=== PATIENT | female | born 1985 | race African-American/Black ===

== ENCOUNTER 2021-01-06 15:17 | Observation (INO) | payer SELFPAY ==
[~2021-01-06] VITALS: Ht 170.2 cm; Wt 105.7 kg
[2021-01-06] MEDS ORDERED: PREN-55 MT (15:38)
== END 2021-01-06 18:55 | disposition home or self-care (01) ==
LOC: 8 EST LDRP 15:17
PROVIDERS: ADMIT Obstetrics & Gynecology; ATTEND Obstetrics & Gynecology
DX: O26.893 Other specified pregnancy related conditions, third trimester (principal); R03.0 Elevated blood-pressure reading, without diagnosis of hypertension; O09.523 Supervision of elderly multigravida, third trimester; Z3A.38 38 weeks gestation of pregnancy
CPT/HCPCS: G0378 ×2; 59025; 99281; G0379

== ENCOUNTER 2021-01-20 12:40 | Inpatient (IN) | payer SELFPAY ==
[~2021-01-20] VITALS: Ht 170.2 cm; Wt 108.9 kg
[~2021-01-20 12:40] MED LIST: PREN-55 MT
[2021-01-20] MEDS ORDERED: DEXT 5%/LR + PITOCIN 20UNITS/L 1,000 ML IV SCH ×2 (13:45→23:15)
[2021-01-20] MEDS ORDERED: LACTATED RINGERS 1,000 ML IV SCH (13:45)
[2021-01-20] MEDS ORDERED: LIDOCAINE HCL 1% 20ML VIAL (Pyxis) INJ INFIL SCH (13:45)
[2021-01-20] MEDS ORDERED: NALOXONE HCL 0.4 MG/ML 1ML VIAL IM PRN (13:45)
[2021-01-20] MEDS ORDERED: BUTORPHANOL TARTRATE 2 MG/ML VIAL IV PRN (13:45)
[2021-01-20] MEDS ORDERED: METHYLERGONOVINE MALEATE 0.2 MG/ML IM PRN (13:45)
[2021-01-20] MEDS ORDERED: CARBOPROST TROMETHAMINE 250 MCG/ML AMPUL IM PRN (13:45)
[2021-01-20] MEDS ORDERED: LABETALOL HCL 5MG/ML VIAL 20ML IV PRN ×3 (14:00)
[2021-01-20 14:35] LABS: BASOPHILS % 0.9 % (0.0-2.0); EOSINOPHILS % 1.2 % (0.0-5.0); HEMATOCRIT. 37.4 % (36.0-48.0); HEMOGLOBIN. 12.5 g/dL (12.0-16.0); LYMPHOCYTES % 25.7 % (20.0-50.0); MEAN CORPUSCULAR HEMOGLOBIN 27.2 pg (28.0-32.0); MEAN CORPUSCULAR VOLUME 81.5 fL (81.0-99.0); MEAN PLATELET VOLUME 8.5 fl (7.4-10.4); MONOCYTES % 8.3 % (2.0-8.0); NEUTROPHILS % 63.9 % (40.0-76.0); PLATELET 254 x1000/uL (130-400); RED BLOOD CELL COUNT 4.59 mill/uL (4.2-5.4); RED CELL DISTRIBUTION WIDTH 15.2 % (11.6-14.6)
[2021-01-20 14:43] LABS: CHLORIDE 107 mEq/L (98-107)
[2021-01-20] MEDS: MAGNESIUM 20 G PREMIX (L & D) 500 ML IV SCH (14:45)
[2021-01-20 14:46] LABS: CLARITY URINE CLEAR (CLEAR); COLOR URINE YELLOW (YELLOW); KETONES URINE NEGATIVE (NEGATIVE); LEUKOCYTE ESTERASE URINE NEGATIVE (NEGATIVE); NITRITE URINE NEGATIVE (NEGATIVE); OCCULT BLOOD URINE NEGATIVE (NEGATIVE); PROTEIN URINE TRACE (NEGATIVE); SPECIFIC GRAVITY URINE 1.016 (1.005-1.030); UROBILINOGEN URINE 0.2 E.U./dL (0.2-1.0)
[2021-01-20 14:51] LABS: INR 0.9; PARTIAL THROMBOPLASTIN TIME 24.9 sec (23.4-31.0); PROTHROMBIN TIME 9.6 sec (9.6-11.0)
[2021-01-20 15:18] LABS: *COCAINE SCREEN URINE NEGATIVE (NEGATIVE)
[2021-01-20 15:19] LABS: *BARBITURATES SCREEN URINE NEGATIVE (NEGATIVE); *BENZODIAZEPINES SCREEN URINE NEGATIVE (NEGATIVE); CANNABINOID URINE SCREEN NEGATIVE (NEGATIVE); METHADONE URINE SCREEN NEGATIVE (NEGATIVE); OPIATES URINE SCREEN NEGATIVE (NEGATIVE); PHENCYCLIDINE URINE SCREEN NEGATIVE (NEGATIVE)
[2021-01-20 15:20] LABS: *AMPHETAMINES SCREEN URINE NEGATIVE (NEGATIVE)
[2021-01-20 15:30] LABS: HEPATITIS B SURFACE ANTIGEN NEGATIVE
[2021-01-20] MEDS ORDERED: OXYTOCIN 10 UNITS/ML 1ML ONE ×2 (18:24→23:49)
[2021-01-20] MEDS ORDERED: CEFAZOLIN SODIUM 1000MG/VIAL ONE (18:24)
[2021-01-20] MEDS ORDERED: MORPHINE SULFATE/PF 1MG/ML 10ML AMP ONE (18:24)
[2021-01-20] MEDS ORDERED: FENTANYL CITRATE/PF 50MCG/ML 2ML VIAL ONE (18:24)
[2021-01-20] MEDS ORDERED: EPHEDRINE SULFATE 50MG/ML VIAL ONE (18:24)
[2021-01-20] MEDS ORDERED: ONDANSETRON HCL 4MG/2ML INJ ONE (18:24)
[2021-01-20] MEDS ORDERED: ONDANSETRON HCL 4MG/2ML INJ IV PRN (23:15)
[2021-01-20] MEDS ORDERED: LANOLIN OINT 7GM TUBE TOP PRN (23:15)
[2021-01-20] MEDS ORDERED: MAGNESIUM 20 G PREMIX (L & D) 500 ML IV SCH (23:15)
[2021-01-20] MEDS ORDERED: HEMORRHOIDAL SUPP PR PRN (23:15)
[2021-01-20] MEDS ORDERED: BISACODYL 10MG SUPP PR PRN (23:15)
[2021-01-20] MEDS ORDERED: DIPHENHYDRAMINE 25MG CAPSULE PO PRN (23:15)
[2021-01-20] MEDS ORDERED: ACETAMINOPHEN WITH CODEINE 300/30MG TABLET PO PRN (23:15)
[2021-01-20] MEDS ORDERED: IBUPROFEN 400MG TABLET PO PRN (23:15)
[2021-01-20] MEDS ORDERED: DIPHENHYDRAMINE 50MG/ML VIAL ONE (23:41)
[2021-01-20] MEDS ORDERED: KETOROLAC 60MG/2ML VIAL IM ONE (23:41)
[2021-01-21] MEDS ORDERED: DIPHENHYDRAMINE 50MG/ML VIAL IV PRN
[2021-01-21] MEDS ORDERED: NALOXONE HCL 0.4 MG/ML 1ML VIAL IV PRN
[2021-01-21 07:09] LABS: BASOPHILS % 0.2 % (0.0-2.0); EOSINOPHILS % 0.7 % (0.0-5.0); HEMATOCRIT. 32.3 % (36.0-48.0); HEMOGLOBIN. 10.5 g/dL (12.0-16.0); LYMPHOCYTES % 19.4 % (20.0-50.0); MEAN CORPUSCULAR HEMOGLOBIN 26.6 pg (28.0-32.0); MEAN CORPUSCULAR VOLUME 81.9 fL (81.0-99.0); MONOCYTES % 8.1 % (2.0-8.0); NEUTROPHILS % 71.6 % (40.0-76.0); PLATELET 231 x1000/uL (130-400); RED BLOOD CELL COUNT 3.94 mill/uL (4.2-5.4); RED CELL DISTRIBUTION WIDTH 15.4 % (11.6-14.6)
[2021-01-21] MEDS: KETOROLAC 30MG/ML VIAL IV SCH ×3 (07:30→17:58)
[2021-01-21 07:41] VITALS: BP 122/70
[2021-01-21] MEDS: SIMETHICONE 80MG TABLET CHEW PO SCH ×4 (09:00→21:24)
[2021-01-21] MEDS: MAGNESIUM/ALUMINUM HYDROXIDE/SIMETHICONE 30ML UDC PO SCH ×4 (09:04→21:23)
[2021-01-21] MEDS: PRENATAL VIT/FE FUMARATE/FA TABLET PO SCH (09:04)
[2021-01-21 12:10] VITALS: BP 122/70
[2021-01-21 16:06] VITALS: BP 133/69
[2021-01-21 19:30] VITALS: BP 142/84
[2021-01-21] MEDS: DOCUSATE SODIUM 100MG CAPSULE PO SCH (21:23)
[2021-01-21] MEDS: MAGNESIUM 20 G PREMIX (L & D) 500 ML IV SCH (21:27)
[2021-01-21] MEDS: IBUPROFEN 800MG TABLET PO PRN (23:44)
[2021-01-22] VITALS: BP 145/85
[2021-01-22 04:00] VITALS: BP 148/82
[2021-01-22] MEDS: IBUPROFEN 800MG TABLET PO PRN ×2 (06:04→15:50)
[2021-01-22] MEDS: PRENATAL VIT/FE FUMARATE/FA TABLET PO SCH (15:50)
[2021-01-22 20:00] VITALS: BP 139/76
[2021-01-22] MEDS: DOCUSATE SODIUM 100MG CAPSULE PO SCH (21:43)
[2021-01-22] MEDS: SIMETHICONE 80MG TABLET CHEW PO SCH (21:44)
[2021-01-22] MEDS: MAGNESIUM/ALUMINUM HYDROXIDE/SIMETHICONE 30ML UDC PO SCH (21:44)
[2021-01-23 04:45] VITALS: BP 132/85
[2021-01-23] MEDS: IBUPROFEN 800MG TABLET PO PRN (04:56)
[2021-01-23 08:00] VITALS: BP 158/88
[2021-01-23] MEDS: PRENATAL VIT/FE FUMARATE/FA TABLET PO SCH (08:38)
[2021-01-23] MEDS: SIMETHICONE 80MG TABLET CHEW PO SCH (08:39)
[2021-01-23] MEDS: MAGNESIUM/ALUMINUM HYDROXIDE/SIMETHICONE 30ML UDC PO SCH (08:39)
[2021-01-23] MEDS ORDERED: IBUP-2030 PO (11:15)
[2021-01-23] MEDS ORDERED: FERR325T6 MT (11:15)
== END 2021-01-23 11:30 | disposition home or self-care (01) | DRG 540 ==
LOC: OBSVTOIN 12:40 → 8 EST LDRP 12:40 → 8EST 01-21 02:50
PROVIDERS: ADMIT Obstetrics & Gynecology; ATTEND Obstetrics & Gynecology
PROC: 10D00Z1 Extraction of Products of Conception, Low, Open Approach (ICD-10-PCS; principal; 2021-01-21)
DX: O62.2 Other uterine inertia (principal); O24.420 Gestational diabetes mellitus in childbirth, diet controlled; O13.4 Gestational [pregnancy-induced] hypertension without significant proteinuria, complicating childbirth; O99.03 Anemia complicating the puerperium; O14.94 Unspecified pre-eclampsia, complicating childbirth; O32.2XX0 Maternal care for transverse and oblique lie, not applicable or unspecified; O48.0 Post-term pregnancy; Z20.822 Contact with and (suspected) exposure to COVID-19; O36.63X0 Maternal care for excessive fetal growth, third trimester, not applicable or unspecified; Z37.0 Single live birth; Z3A.40 40 weeks gestation of pregnancy
CPT/HCPCS: 36415; 76805; 80053; 80305; 81003; 83735; 84550; 85025; 85384; 86592; 86703; 86762; 86850; 86900; 87340; 87426; 88307; 99281; J0690; J1200; J1885; J2274; J2405; J3010; J3475; J3490; J7120